=== PATIENT | female | born 1940 | race Caucasian/White ===

== ENCOUNTER → 2017-05-19 | Day surgery (SDC) | payer MEDICARE, BC ==
[~2017-05-19] MED LIST: ASPIRIN ENTERI325 M1 PO; CELECOXIB100 MG PO; NAMENDA XR28 MG PO; PRILOSEC PO; SERTRALINE HCL100 M1 PO
--- NOTE | ~2017-05-19 | OR ---
Unit #: [id number] #: [id number] Patient: FLÉIX FARMER [id number] [address] [place], [place] [address] [id number] MR#: [id number] NAME: FÉLIX FARMER ROOM: Date of Procedure: 05/19/2017 Admission Date: 05/19/2017 Surgeon: Niles Shankar Jr., M.D. : 1940 Attending Physician: Niles Shankar Jr., M.D. Primary Care Physician: Malcom Bowie Jr., M.D. OPERATIVE REPORT INDICATIONS FOR PROCEDURE The patient is a 77-year-old white female with severe Alzheimer disease, who has had problems swallowing recently with progressive dysphagia. It was felt she may have esophageal stenosis or possibly occult ulcer disease or severe esophagitis. She is brought in this time for upper endoscopy at the request of her family physician. The family including her power of staff attorney understand the procedure including the risks, including that of perforation and bleeding, and consents. PREOPERATIVE DIAGNOSES Possible esophageal stenosis with dysphagia. POSTOPERATIVE DIAGNOSES Mild distal esophageal stenosis with mild hemorrhagic gastritis and very tiny gastric polyps felt to be benign. There were no other abnormalities. ANESTHESIA MAC anesthesia. PROCEDURES PERFORMED Flexible fiberoptic esophagogastroduodenoscopy with antral biopsy for Helicobacter pylori and esophageal dilatation of the distal esophagus from 18 to 19 to 20 mm slowly. DESCRIPTION OF PROCEDURE The patient was positioned in Kendrick position with left side down. After being given MAC anesthesia, the Olympus XQ scope was passed through the proximal esophagus. Entire esophagus was examined. There was no evidence of any esophagitis, but there was some mild distal esophageal stenosis. The scope was advanced through the GE junction and the cardia and down to the fundic and antral region of the stomach, retroflexed back up to the area of the cardia. There was no obvious hiatal hernia. The stomach distended well without evidence of rigidity. There was no evidence of any gastric ulcer disease. There was coffee-ground material in the stomach with some mild gastritis indicating mild hemorrhagic gastritis. A biopsy was taken for Helicobacter pylori without significant bleeding from the antrum. The scope was then advanced through the pylorus and duodenal bulb and down to the second portion of the duodenum. The entire duodenal portion examination was within normal limits. The scope was then slowly brought back in the area of the fundus and an 18 to 20 mm balloon dilator was then placed, brought up in the distal esophagus and used to slowly dilate the distal esophagus from 18 to 19 to 20 mm. The dilator was Unit #: [id number] #: [id number] Patient: FÉLIX FARMER removed. The distal esophagus checked. There was no evidence of any perforations, tears, or significant bleeding. The scope was slowly removed. The patient tolerated the procedure well and discharged in satisfactory condition. Dictated by... Niles Shankar Jr., M.D. JMB/suleiman TD: 05/19/2017 15:56 JOB #: [id number] CC: Saman De Jesus Jr, M.D. OPERATIVE REPORT Page 1 of 1 X Niles Shankar MD X PROCEDURE OPERATIVE NOTE
== END | disposition home or self-care (01) ==
LOC: COPS 12:22
DX: K22.2 Esophageal obstruction (principal); K29.71 Gastritis, unspecified, with bleeding; I25.2 Old myocardial infarction; Z87.440 Personal history of urinary (tract) infections; Z88.6 Allergy status to analgesic agent; Z91.041 Radiographic dye allergy status; Z79.82 Long term (current) use of aspirin; Z79.899 Other long term (current) drug therapy
CPT/HCPCS: 87077